=== PATIENT | female | born 1960 | race Caucasian/White ===

== ENCOUNTER → 2021-02-15 | Outpatient (CLI) | payer OTHER ==
[~2021-02-15] MED LIST: LIDOCAINE 1% Multi-Dose 20 ML VIAL. INJ ONE; LIDOCAINE 2%/EPI 1:100,000 20 ML VIAL. INJ ONE
--- NOTE | 2021-02-15 09:48 | RAD ---
EXAM: Stereotactic left breast biopsy; specimen radiograph; post-biopsy clip placement; unilateral po st-biopsy mammogram. HISTORY: 60-year-old female presents for biopsy of clustered microcalcifications within the left gabriele st demonstrated on a study performed at an outside facility. TECHNIQUE AND FINDINGS: The procedure and its risks and benefits were discussed with the patient. Ris ks discussed included, but were not limited to, pain, infection, bleeding and need for repeat biopsy. The patient provided verbal and written consent. A timeout was performed. The left breast was placed in craniocaudal compression. Mammographic images were obtained of the calc ifications of concern were localized using stereotaxis.. These are located the anterior 12:00 positio n. The skin overlying this region was then sterilely prepped and infiltrated with a few cc 1% lidocai ne for local anesthesia. Deeper soft tissue anesthesia was administered with epinephrine in 1% lidoca ine. A small skin incision was made and the biopsy device was advanced and appropriate positioning wa s confirmed with additional images. Subsequently, multiple core biopsy samples were obtained with vacuum assistance. A plain radiograph o f the specimen was obtained, demonstrating inclusion of the calcifications of interest. Then, a post- biospy clip was advanced to the site of biopsy using the same guidance technique. A sterile bandage was placed, manual compression was maintained until hemostasis achieved, and post biopsy mammogram im ages were obtained. The post-biopsy mammogram was interpreted separate workstation and demonstrates immediate post-biospy changes and a biopsy clip in expected position. The patient tolerated the procedure without difficul ty and was discharged to home in stable condition with post-biospy care instructions. IMPRESSION: Successful stereotactic guided biopsy of clustered microcalcifications within the anterio r 12:00 position of the left breast and biopsy clip placement. An addendum to this report will be sub mitted when pathology results are available. Electronically signed by: Jazmyn Victor MD (02/15/2021 9:46 AM) [id number]
--- NOTE | 2021-02-17 17:11 | PATHOLOGY ---
[facility] Accession Number: [id number] . 01 Material submitted: . breast - LEFT BREAST TISSUE. Modifiers: left . 01 Clinical history: . LEFT BREAST CALCIFICATIONS LEFT BREAST STEROTACTIC . 02 Diagnosis: Breast tissue, left breast stereotactic biopsies: - Fibroadenomatous changes with associated calcifications. (JPM:cloth shader; 02/17/2021) MBR 02/17/2021 1549 Local . 02 Comment: There is no evidence of malignancy. (JPM:cloth shader; 02/17/2021) . 02 Electronically signed: . David Kan MD, Pathologist NPI- [id number] . 01 Gross description: . The specimen is received in formalin, labeled "Deidra Moreira, left breast tissue". Received in a blue cassette are multiple segments of bright yellow, fatty tissue measuring 3.0 x 2.5 x 0.3 cm in aggregate dimensions. The specimen is entirely submitted in cassette A1. Also received outside of the cassette are multiple segments of bright yellow, fatty tissue measuring 2.5 x 0.6 x 0.1 cm in aggregate dimensions. The specimen is filtered and entirely submitted in cassette A2. The specimen is collected at 0910 and placed into formalin at 0923 on 02/15/2021. The specimen is removed from formalin at 1950 on 02/15/2021. The total formalin fixation time is 10 hours and 27 minutes. ([facility]; 02/15/2021) NRI/NRI 02/15/2021 1640 Local . 02 Pathologist provided ICD-10: N64.89 . 02 CPT . 801385 Specimen Comment: A courtesy copy of this report has been sent to [phone] Specimen Comment: Report sent to Specimen Comment: A duplicate report has been generated due to demographic updates. Performed at: 01 [facility] [place] [id number] [facility] [address], [place] [id number] MD Dontrell Hernandes MD Phone: [phone] Performed at: 02 [facility] [place] [address] [place], [place] [id number] MD David Kan MD Phone: [phone]
== END | disposition home or self-care (01) ==
LOC: MAMMO 08:08
PROVIDERS: ATTEND Surgery
DX: N64.89 Other specified disorders of breast (principal); R92.1 Mammographic calcification found on diagnostic imaging of breast; Z88.5 Allergy status to narcotic agent
CPT/HCPCS: 19081; 77065; 88305